=== PATIENT | male | born 1960 | race Caucasian/White ===

== ENCOUNTER 2019-11-24 08:06 | Emergency (ER) | payer OTHER, MEDICAID ==
[~2019-11-24] VITALS: Ht 180.3 cm; Wt 95.3 kg
[2019-11-24 08:06] VITALS: BP_SYST 126
--- NOTE | 2019-11-24 08:06 | NUR ---
BROUGHT IN BY [facility] FROM [facility], PLACED IN BED AND TRIAGED. REPORT GIVEN TO DONA
--- NOTE | 2019-11-24 08:15 | NUR ---
pt arrives from [facility] after sticking a straw up his urethra. Pt is currently bleeding from the urethra. Urine collected
--- NOTE | 2019-11-24 08:16 | NUR ---
ER at bedside examining patient.
[2019-11-24 09:14] VITALS: BP_SYST 126
--- NOTE | 2019-11-24 09:16 | NUR ---
Patient given written and verbal discharge instructions and verbalizes understanding. ER MD discussed with patient the results and treatment provided. Patient in stable condition. ID arm band removed. Patient educated on pain management and to follow up with PMD. Pain Scale 0/10. Opportunity for questions provided and answered. Medication side effect fact sheet provided.
--- NOTE | 2019-11-24 11:06 | NUR ---
report given to paramedics. Pt will be returning to [facility]
== END 2019-11-24 09:16 | disposition home or self-care (01) ==
LOC: SED 08:06
DX: R31.9 Hematuria, unspecified (principal); I10 Essential (primary) hypertension; F17.200 Nicotine dependence, unspecified, uncomplicated
CPT/HCPCS: 99283